=== PATIENT | female | born 1990 | race Caucasian/White ===

== ENCOUNTER 2024-04-01 08:46 | Outpatient (CLI) | payer OTHER, SELFPAY ==
--- NOTE | ~2024-04-01 | MMUS_ITS ---
EXAMINATION: MM diagnostic chito BI w enriqueta, US breast BI complete HISTORY: Right breast lump TECHNIQUE: Additional 3-D tomosynthesis images of the breasts were performed and synthetic 2-D images were generated. CAD analysis was submitted and interpreted. High resolution complete bilateral breas t ultrasound was performed. COMPARISON: No prior studies for comparison. BREAST PARENCHYMAL COMPOSITION: Dense: The breasts are heterogeneously dense, which may obscure small masses FINDINGS: MAMMOGRAPHIC FINDINGS: There are obscured masses scattered throughout both breasts. No suspicious architectural distortion o r abnormal clustered calcifications are seen. ULTRASOUND: Complete US of all 4 quadrants of the breast/s and retroareolar region was reviewed. Right breast: There are cysts of the right breast including complicated cysts measuring 9 mm at 11:00 , 4.5 cm in the area of palpable concern. Also at this location is a slightly irregular shaped oval h ypoechoic mass with heterogeneous internal echotexture measuring 9 mm. There is marginal vascularity. No significant posterior features. At 7:00 near the nipple there is an irregular shaped hypoechoic 9 mm mass with no significant posterior features. Left breast: There are multiple cysts of the left breast, largest at 1:00, 3 cm from the nipple measu ring 8 mm. No suspicious sonographic abnormalities of the left breast to suggest malignancy. IMPRESSION: 1. Abnormal masses of the right breast at 11:00, 4.5 cm from the nipple and 7:00 near the nipple. Steve ign cysts of the left breast. No evidence for suspicious left breast abnormalities. 2. Ultrasound-guided right breast biopsies recommended. BI-RADS category 4, suspicious findings. Reviewed, dictated and finalized at location B. TICING MD ANESTHESIOLOGIST IMPRESSION: 1. Abnormal masses of the right breast at 11:00, 4.5 cm from the nipple and 7:0 0 near the nipple. Benign cysts of the left breast. No evidence for suspicious left breast abnormalities. 2. Ultrasound-guided right breast biopsies recommended. BI-RADS category 4, suspicious findings.
== END 2024-04-01 08:47 | disposition home or self-care (01) ==
PROVIDERS: PCP Obstetrics & Gynecology; Visit Provider Obstetrics & Gynecology
DX: R92.8 Other abnormal and inconclusive findings on diagnostic imaging of breast (principal); N63.10 Unspecified lump in the right breast, unspecified quadrant
CPT/HCPCS: 76641; 77062; 77066; G0279